=== PATIENT | female | born 1965 | race Caucasian/White ===

== ENCOUNTER 2020-09-16 12:24 | Day surgery (SDC) | payer SELFPAY ==
[~2020-09-16 12:24] MED LIST: DIPRIVAN 200 MG/20 ML IV ONE; Quelicin Fliptop 200 MG/10 ML ONE; Versed 2 MG/2 ML Injection ONE
[2020-09-16] MEDS ORDERED: GlucaGen 1 MG IV ONE (12:34)
[2020-09-16] MEDS ORDERED: GlucaGen 1 MG ONE (12:40)
--- NOTE | 2020-09-16 12:41 | ERPHSYRPT ---
- History of Present Illness Time Seen by Provider: 09/16/20 12:30 Historian: patient Exam Limitations: no limitations Patient Subjective Stated Complaint: Pain in her lower throat/upper chest after swallowing steak Physician History: Patient began having upper chest/anterior neck pain after swallowing a piece of steak. Patient has had regurgitation of liquids after swallowing the piece of steak and has discomfort still even after trying to vomit the steak back up. Patient is being treated currently for GERD Timing/Duration: today (30 minutes ago) Activities at Onset: other (Swallowing a piece of steak) Quality: aching, stabbing Location: other (Upper central and anterior neck) Chest Pain Radiation: no radiation Severity of Pain-Max: severe Severity of Pain-Current: mild Modifying Factors: Improves With: nothing Associated Symptoms: No nausea, No vomiting, No palpitations, No abdominal pain, No shortness of breath, No hurts to breathe, No diaphoresis, No chills, No fever, No fatigue, No weakness, No syncope, No dizziness Prior Chest Pain/Cardiac Workup: no prior chest pain Nitro Today/Relief: no nitro taken today Aspirin Treatment Today: no aspirin today Allergies/Adverse Reactions: fentanyl Allergy (Severe, Verified 09/16/20 12:38) aspirin Adverse Reaction (Mild, Verified 09/16/20 12:38) codeine Adverse Reaction (Mild, Verified 09/16/20 12:38) Home Medications: Escitalopram Oxalate [Lexapro] 10 mg PO DAILY 09/16/20 [History] Metoprolol Tartrate 50 mg PO DAILY 09/16/20 [History] - Review of Systems Constitutional: No Fever, No Chills Eyes: No Eye Pain, No Vision Changes Ears, Nose, & Throat: Painful Swallowing, No Nose Congestion, No Mouth Pain, No Mouth Swelling, No Throat Swelling Respiratory: No Cough, No Dyspnea Cardiac: Chest Pain, No Edema, No Syncope Abdominal/Gastrointestinal: No Abdominal Pain, No Nausea, No Vomiting, No Diarrhea Genitourinary Symptoms: No Flank Pain Musculoskeletal: No Back Pain, No Neck Pain Skin: No Rash Neurological: No Dizziness, No Focal Weakness, No Sensory Changes Psychological: Anxiety Endocrine: No Symptoms Hematologic/Lymphatic: No Easy Bleeding, No Easy Bruising All Other Systems: Reviewed and Negative - Nursing Vital Signs Nursing Vital Signs: Initial Vital Signs Temperature 98.2 F 09/16/20 12:28 Pulse Rate 71 10/19/20 12:28 Blood Pressure 152/100 09/16/20 12:28 O2 Sat by Pulse Oximetry 96 09/16/20 12:28 Pain Scale Pain Intensity 1 - Physical Exam General Appearance: no apparent distress, alert Eye Exam: PERRL/EOMI, eyes nml inspection, No scleral icterus Ears, Nose, Throat Exam: normal ENT inspection, moist mucous membranes Neck Exam: normal inspection, non-tender, supple, full range of motion, No meningismus, No Brudzinski, No JVD, No limited range of motion, No lymphadenopathy Respiratory Exam: normal breath sounds, lungs clear, No respiratory distress Cardiovascular Exam: regular rate/rhythm, normal heart sounds, capillary refill <2 sec Gastrointestinal/Abdomen Exam: soft, No tenderness, No mass Back Exam: normal inspection, No CVA tenderness, No vertebral tenderness Extremity Exam: normal inspection, normal range of motion Neurologic Exam: alert, oriented x 3, cooperative, product safety associate II-XII nml as tested, normal mood/affect, sensation nml, No motor deficits Skin Exam: normal color, warm, dry SpO2 Interpretation: normal O2 Delivery: Room Air - Course Nursing assessment & vital signs reviewed: Yes EKG Interpreted by Me: RATE (69), Sinus Rhythm, NORMAL AXIS, NORMAL INTERVALS, NORMAL QRS, NORMAL ST-T, Other (Normal QTc interval; negative previous EKG for comparison) - Radiology Exams Chest X-ray Interpretation: Reviewed by me, No Pneumonia, No Pneumothorax, Nml Heart Size, No Infiltrates, Nml Mediastinum, Nml Soft Tissues, Other (Radiologist interpretation: normal heart, lungs and bony thorax with incidental left apical calcified granuloma) Other X-ray Interpretation: Reviewed by me, Other (Per radiologist interpretation: AP/lateral soft tissue neck demonstrates infraglottic irregular soft tissue like foreign body and incidental mild C4 C6 degenerative changes. 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 STAT Care 09/16/20 12:33 Active EKG-ER Only STAT Care 09/16/20 12:32 Active IV Insertion STAT Care 09/16/20 12:32 Active CHEST 2 VIEWS (PA AND LAT) Stat Exams 09/16/20 13:06 Completed NECK SOFT TISSUE Stat Exams 09/16/20 12:35 Completed CBC W DIFF Stat Lab 09/16/20 12:47 Completed CK-Creatinine Phosphokinase Stat Lab 09/16/20 12:47 Completed CMP Stat Lab 09/16/20 12:47 Completed PROTIME WITH INR Stat Lab 09/16/20 12:47 Completed PTT Stat Lab 09/16/20 12:47 Completed TROPONIN Q3H Lab 09/16/20 12:47 Completed TROPONIN Q3H Lab 09/16/20 15:45 Ordered TROPONIN Q3H Lab 09/16/20 18:45 Ordered TROPONIN Q3H Lab 09/16/20 21:45 Ordered TROPONIN Q3H Lab 09/17/20 00:45 Ordered Medication Summary Discontinued Medications Generic Name Dose Route Start Last Admin Trade Name Freq PRN Reason Stop Dose Admin Glucagon 1 mg 09/16/20 12:34 09/16/20 12:46 Glucagen 1 Mg IV 09/16/20 12:35 1 mg STAT ONE Administration Glucagon Confirm 09/16/20 12:40 Glucagen 1 Mg Administered 09/16/20 12:41 Dose 1 mg .ROUTE .STSiBEAM-MED ONE Lab/Rad Data: Laboratory Result Diagrams 09/16/20 12:47 09/16/20 12:47 Laboratory Results 09/16/20 09/16/20 09/16/20 Range/Units 12:47 12:47 12:47 WBC (4.0-10.5) K/mm3 RBC (4.1-5.4) M/mm3 Hgb (12.0-16.0) gm/dl Hct (35-47) % MCV (78-100) fl MCH (26-32) pg MCHC (32-36) g/dl RDW (11.5-14.0) % Plt Count (150-450) K/mm3 MPV (7.5-11.0) fl Gran % (36.0-66.0) % Eos # (Auto) (0-0.5) Absolute Lymphs (auto) (1.0-4.6) Absolute Monos (auto) (0.0-1.3) Lymphocytes % (24.0-44.0) % Monocytes % (0.0-12.0) % Eosinophils % (0.00-5.0) % Basophils % (0.0-0.4) % Absolute Granulocytes (1.4-6.9) Basophils # (0-0.4) PT 12.7 H (9.95-12.35) SECONDS INR 1.12 (0.8-3.0) APTT 30.7 (25.3-37.0) SECONDS Sodium 135 L (137-145) mmol/L Potassium 4.1 (3.5-5.1) mmol/L Chloride 105 (98-107) mmol/L Carbon Dioxide 27 (22-30) mmol/L Anion Gap 7.5 (5-15) MEQ/L BUN 18 H (7-17) mg/dL Creatinine 0.97 (0.52-1.04) mg/dL Estimated GFR > 60.0 ML/MIN Glucose 112 H (74-106) mg/dL Calcium 9.4 (8.4-10.2) mg/dL Total Bilirubin 0.70 (0.2-1.3) mg/dL AST 261 H (14-36) U/L ALT 139 H (0-35) U/L Alkaline Phosphatase 101 (38-126) U/L Creatine Kinase 47 (30-135) U/L Troponin I < 0.012 (0.000-0.034) ng/mL Serum Total Protein 8.2 (6.3-8.2) g/dL Albumin 4.0 (3.5-5.0) g/dL 09/16/20 Range/Units 12:47 WBC 6.1 (4.0-10.5) K/mm3 RBC 4.10 (4.1-5.4) M/mm3 Hgb 15.6 (12.0-16.0) gm/dl Hct 44.2 (35-47) % MCV 107.8 H (78-100) fl MCH 38.0 H (26-32) pg MCHC 35.3 (32-36) g/dl RDW 12.8 (11.5-14.0) % Plt Count 136 L (150-450) K/mm3 MPV 11.0 (7.5-11.0) fl Gran % 60.4 (36.0-66.0) % Eos # (Auto) 0.26 (0-0.5) Absolute Lymphs (auto) 1.53 (1.0-4.6) Absolute Monos (auto) 0.61 (0.0-1.3) Lymphocytes % 25.0 (24.0-44.0) % Monocytes % 10.0 (0.0-12.0) % Eosinophils % 4.3 (0.00-5.0) % Basophils % 0.3 (0.0-0.4) % Absolute Granulocytes 3.69 (1.4-6.9) Basophils # 0.02 (0-0.4) PT (9.95-12.35) SECONDS INR (0.8-3.0) APTT (25.3-37.0) SECONDS Sodium (137-145) mmol/L Potassium (3.5-5.1) mmol/L Chloride (98-107) mmol/L Carbon Dioxide (22-30) mmol/L Anion Gap (5-15) MEQ/L BUN (7-17) mg/dL Creatinine (0.52-1.04) mg/dL Estimated GFR ML/MIN Glucose (74-106) mg/dL Calcium (8.4-10.2) mg/dL Total Bilirubin (0.2-1.3) mg/dL AST (14-36) U/L ALT (0-35) U/L Alkaline Phosphatase (38-126) U/L Creatine Kinase (30-135) U/L Troponin I (0.000-0.034) ng/mL Serum Total Protein (6.3-8.2) g/dL Albumin (3.5-5.0) g/dL - Progress Air Movement: good Progress Note: 09/16/20 13:07 No relief after IV glucagon; will review chest and soft tissue neck x-rays and then contact Dr. Waddell, general surgery 09/16/20 13:27 Notify the patient of the plan of taking her to the OR and general surgery will evaluate her and most likely treat with an EGD 09/16/20 13:33 Patient came in due to having severe pain in the anterior neck/upper chest after swallowing a piece of steak. She had regurgitation with any fluid intake and had pain in the lower anterior neck/upper chest. Patient was medically cleared with a normal chest x-ray, normal EKG and negative troponin, although she did have elevated LFTs. She did not respond to glucagon IV, and x-ray soft tissue neck showed foreign body that was for glottic in the esophagus. Patient was discussed with general surgery who accept the patient to take back to the OR for an EGD with potential removal. Blood Culture(s) Obtained: No Antibiotics given: No Discussed with : Quentin (At 13:23, discussed the patient with Dr. Meraz, general surgery. Dr. Meraz will take the patient to the OR and perform an EGD for definitive evaluation and management of the esophageal foreign body) Will see patient in: other (Patient will be seen in the operating room for an EGD and final disposition will be performed from there) Counseled pt/family regarding: lab results, diagnosis, need for follow-up (Patient will be taken to the OR for an EGD and potential removal of the impacted esophageal foreign body by Dr. Waddell, General Surgery), rad results - Departure Departure Disposition: Release to OR/MDC Clinical Impression: Elevated LFTs Impacted esophageal foreign body Qualifiers: Encounter type: initial encounter Qualified Code(s): T18.108A - Unspecified foreign body in esophagus causing other injury, initial encounter Hypertension Qualifiers: Hypertension type: essential hypertension Qualified Code(s): I10 - Essential ( primary) hypertension Condition: Good Critical Care Time: No Referrals: FABIO PAIGE [Primary Care Provider] - 09/17/20 (Follow-up with your primary care physician to discuss follow-up testing for your elevated liver function tests) Instructions: Removal of Foreign Body, Swallowed, Adult Additional Instructions: Follow-up with your physician and general surgery as instructed. You need to follow-up your elevated liver function tests to determine if any further testing needs to be performed with your primary care physician on 09/17/2020
[2020-09-16 12:54] LABS: INR 1.12 (0.8-3.0); PROTIME 12.7 SECONDS (9.95-12.35)
[2020-09-16 12:55] LABS: Absolute Neutrophil Ct (ANC) 3.69 (1.4-6.9); BASOPHIL % 0.3 % (0.0-0.4); Basophil (Absolute #) 0.02 (0-0.4); Eosinophil % 4.3 % (0.00-5.0); Eosinophil (Absolute #) 0.26 (0-0.5); Hematocrit 44.2 % (35-47); Hemoglobin 15.6 gm/dl (12.0-16.0); Lymphocyte (Absolute #) 1.53 (1.0-4.6); Mean Cell Volume 107.8 fl (78-100); Mean Corpuscular Hgb Concent. 35.3 g/dl (32-36); Monocyte (Absolute #) 0.61 (0.0-1.3); Neutrophil % 60.4 % (36.0-66.0); Platelet Count 136 K/mm3 (150-450); Red Cell Distribution Width 12.8 % (11.5-14.0); White Blood Count 6.1 K/mm3 (4.0-10.5)
[2020-09-16 12:57] LABS: PTT 30.7 SECONDS (25.3-37.0)
[2020-09-16 12:59] LABS: ALKALINE PHOSPHATASE 101 U/L (38-126); ANION GAP 7.5 MEQ/L (5-15); BLOOD UREA NITROGEN 18 mg/dL (7-17); CHLORIDE 105 mmol/L (98-107); CK-Creatinine Phosphokinase 47 U/L (30-135); Calcium 9.4 mg/dL (8.4-10.2); Carbon Dioxide 27 mmol/L (22-30); Creatinine 1 0.97 mg/dL (0.52-1.04); EST GLOMERULAR FILTRATION RATE > 60.0 ML/MIN; Glucose 112 mg/dL (74-106); Potassium 4.1 mmol/L (3.5-5.1); SGOT/AST 261 U/L (14-36); SGPT/ALT 139 U/L (0-35); SODIUM 135 mmol/L (137-145); Total Protein 8.2 g/dL (6.3-8.2)
--- NOTE | 2020-09-16 13:19 | XRAY ---
Indication: Patient choked on steak. Comparison: None AP/lateral soft tissue neck demonstrates infraglottic irregular soft tissue like foreign body and incidental mild C4-C6 degenerative changes. No other bony, articular, or soft tissue abnormalities.
--- NOTE | 2020-09-16 13:22 | XRAY ---
Indication: Patient choked on steak. Comparison: None AP/lateral chest demonstrates normal heart, lungs, and bony thorax with incidental left apical calcified granuloma.
[2020-09-16] MEDS ORDERED: Xopenex 1.25 MG/0.5 ML UD NEBULE IH ONE ×2 (14:42→15:23)
[2020-09-16] MEDS ORDERED: Sodium Chloride 3 ML UD NEBULES IH ONE ×2 (14:43→15:23)
[2020-09-16] MEDS ORDERED: Lactated Ringers 1,000 ML IV ONE (14:52)
[2020-09-16 16:33] VITALS: O2SAT 93
[2020-09-16 16:36] VITALS: BP 137/84; PULSE 63
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
--- NOTE | 2020-09-17 09:22 | OP ---
SURGERY DATE/TIME: 09/16/2020 1053 PREOPERATIVE DIAGNOSES: 1) Dysphagia. 2) Retained food bolus in esophagus. POSTOPERATIVE DIAGNOSES: 1) Dysphagia. 2) Retained food bolus in esophagus. Large portions of meat retained in the esophagus. 3) Short segment distal gastroesophagitis versus early Palacio's, path pending. PROCEDURES: 1) EGD with dislodgement of large portions of meat (steak) from the esophagus into stomach. 2) Cold biopsy distal esophagus to evaluate for Palacio's esophagus short segment. SURGEON: Dr. Rogelio Waddell. ANESTHESIA: General. ESTIMATED BLOOD LOSS: Minimal. INDICATIONS: As noted above. Risks and benefits explained in detail and not limited to and consent obtained. DESCRIPTION OF PROCEDURE AND FINDINGS: The patient is taken to the operating room. General anesthesia induced. After official time out and no disagreement with planned procedure, video gastroscope passed down the proximal esophagus where a large portion of meat was in mid portion of esophagus as she had steak she said. Carefully this is able to be slowly pushed down into the stomach carefully. Once the largest piece is pushed down in there then smaller pieces are able to be with combination of suction and irrigated and removed through the scope or they are pushed back down in the stomach until the esophagus is clear. There did not appear to be any obvious evidence of any ischemic changes. There was a short segment of a few millimeters of salmon-pink mucosa distal esophagus about 39 cm at gastroesophageal junction. Whether this is early Palacio's or early distal gastroesophagitis cold biopsies were taken. Good hemostasis noted. Scope then passed down into the proximal duodenum which was grossly unremarkable. There was a large amount of food debris in the stomach. The scope is slowly and carefully withdrawn. Gastroesophageal junction about 39 cm. Biopsy site had good hemostasis. The stomach was decompressed to reduce the risk of aspiration and the esophagus suctioned as clear as possible on withdrawal of the scope up the esophagus. There was no remaining obstruction. The esophagus had been cleared. The scope is withdrawn. The patient tolerated the procedure well. I will see if she has any family here to discuss the findings with. I will see her in the office next week to go over biopsy results. Start off with room temperature liquids x4 hours and then increase to soft food small bites as tolerated. She is to avoid any NSAID's, aspirin or blood thinners over the next week.
== END 2020-09-16 15:43 | disposition home or self-care (01) ==
LOC: ED 12:24 → SDC 15:22
PROVIDERS: ATTEND Surgery
DX: R13.10 Dysphagia, unspecified (principal); T18.128A Food in esophagus causing other injury, initial encounter; K29.70 Gastritis, unspecified, without bleeding; K20.90 Esophagitis, unspecified without bleeding; Z79.899 Other long term (current) drug therapy
CPT/HCPCS: 36000; 36415; 70360; 71046; 80053; 82550; 84484; 85025; 85610; 85730; 88305; 93005; 93041; 94250; 94640; 96374; 99140; 99285; J0330; J1610; J2250; J2704; A9270-GY